=== PATIENT | male | born 1950 | race Caucasian/White ===

== ENCOUNTER 2022-06-26 12:30 | Outpatient (RCR) | payer MEDICARE, OTHER, SELFPAY | END 2022-09-22 11:41 | disposition home or self-care (01) | PROVIDERS: Visit Provider Surgery | DX: I89.0 Lymphedema, not elsewhere classified (principal); Z51.89 Encounter for other specified aftercare | CPT/HCPCS: 97110; 97140; 97162; 97165; 97535 ==